=== PATIENT | male | born 1960 | race Caucasian/White ===

== ENCOUNTER 2018-01-29 08:10 | Emergency (ER) | payer BC ==
[2018-01-29] MEDS ORDERED: Ondansetron INJ* 2 MG/ML VIAL IV ONE (08:25)
[2018-01-29] MEDS ORDERED: NS 0.9% 1000 ML* 1,000 ML IV ONE (08:30)
[2018-01-29] MEDS ORDERED: Morphine VIAL* 4 MG/ML VIAL (1 ml vial) IV ONE ×2 (08:30→09:25)
--- NOTE | 2018-01-29 08:46 | ED ---
Abdominal Pain/Male - HPI Summary HPI Summary: Patient is a 57-year-old male presenting to the ED with a complaint of abdominal pain acute onset this morning around 5 AM. Associated nausea and vomiting 3. Normal bowel movement. Denies any abdominal surgical history. He states he had abdominal pain several years ago in the same area and a CT abdomen showed no findings. Today he awoke with a hardened mass just above the umbilicus measuring approximately 6 cm in diameter. The area is exquisitely tender to the touch, but denies any discolorations or temperature changes to the area. Medications include atorvastatin. Denies any other medications. Endorses a mild amount of chest pain immediately following few episodes of vomiting. Endorses some epigastric tenderness. Denies any cardiac history. Denies any shortness of breath. Pain is currently an 8/10. - History of Current Complaint Chief Complaint: EDAbdPain Stated Complaint: ABD PAIN,VOMITING Time Seen by Provider: 01/29/18 08:18 Hx Obtained From: Patient, Family/Assembly Riveter Onset/Duration: Sudden Onset - Worsening over the past month, worse in severity today Timing: Constant Severity Initially: Moderate Severity Currently: Moderate Pain Intensity: 7 Pain Scale Used: 0-10 Numeric Location: Umbilical Radiates: No Character: Dull Aggravating Factor(s): Nothing Alleviating Factor(s): Position - Lying flat Associated Signs And Symptoms: Positive: Nausea, Vomiting. Negative: Diaphoresis, Cough, Constipation, Blood in Stool, Decreased Appetite, Diarrhea, Penile Discharge - Risk Factors Testicular Torsion: Negative Cardiac Risk Factors: Negative - Allergies/Home Medications Allergies/Adverse Reactions: Allergies Allergy/AdvReac Type Severity Reaction Status Date / Time enviromental Allergy Mild itching,watery Uncoded 01/29/18 08:27 eyes and nose PMH/Surg Hx/FS Hx/Imm Hx Previously Healthy: Yes Endocrine/Hematology History: Denies: Hx Diabetes, Hx Thyroid Disease Cardiovascular History: Reports: Hx Hypercholesterolemia - no meds per pt, Hx Hypertension - pt quit meds 2 months ago Respiratory History: Denies: Hx Asthma, Hx Chronic Obstructive Pulmonary Disease (COPD) GI History: Reports: Other GI Disorders - abdominal pain Denies: Hx Ulcer - Immunization History Hx Pertussis Vaccination: No Immunizations Up to Date: Unable to Obtain/Confirm Infectious Disease History: No Infectious Disease History: Denies: Hx Clostridium Difficile, Hx Hepatitis, Hx Human Immunodeficiency Virus (HIV), Hx Shingles, Hx Tuberculosis, History Other Infectious Disease, Traveled Outside the [place] in Last 30 Days - Social History Occupation: Employed Full-time Lives: With Family Alcohol Use: None Hx Substance Use: No Substance Use Type: Reports: None Hx Tobacco Use: No Smoking Status (MU): Never Smoked Tobacco Review of Systems Constitutional: Negative Negative: Fever, Chills, Fatigue, Skin Diaphoresis Negative: Palpitations, Chest Pain Negative: Shortness Of Breath, Cough Positive: Abdominal Pain - umbilical, Vomiting, Nausea. Negative: Diarrhea Genitourinary: Negative Positive: no symptoms reported, see HPI Skin: Negative Neurological: Negative All Other Systems Reviewed And Are Negative: Yes Physical Exam Triage Information Reviewed: Yes Vital Signs On Initial Exam: Initial Vitals Temp Pulse Resp BP Pulse Ox 96.4 F 58 18 143/79 97 01/29/18 08:11 01/29/18 08:11 01/29/18 08:11 01/29/18 08:11 01/29/18 08:11 Vital Signs Reviewed: Yes Appearance: Positive: Well-Appearing, Well-Nourished Skin: Positive: Warm, Skin Color Reflects Adequate Perfusion Head/Face: Positive: Normal Head/Face Inspection Eyes: Positive: EOMI, JULISA, Conjunctiva Clear Neck: Positive: Supple, No Lymphadenopathy Respiratory/Lung Sounds: Positive: Clear to Auscultation, Breath Sounds Present Cardiovascular: Positive: RRR, Pulses are Symmetrical in both Upper and Lower Extremities Abdomen Description: Positive: Hernia @ - umbilical Musculoskeletal: Positive: Strength/ROM Intact Neurological: Positive: Sensory/Motor Intact, Speech Normal Psychiatric: Positive: Normal, Affect/Mood Appropriate AVPU Assessment: Alert Diagnostics - Vital Signs Vital Signs Temp Pulse Resp BP Pulse Ox 01/29/18 08:11 96.4 F 58 18 143/79 97 - Laboratory Result Diagrams: 01/29/18 08:59 01/29/18 08:59 Lab Statement: Any lab studies that have been ordered have been reviewed, and results considered in the medical decision making process. Re-Evaluation - Re-Evaluation First Eval Change: Improved - Improved with pain medication and nausea medication Abdominal Pain Fem Course/Dx - Course Course Of Treatment: Patient is evaluated for a probable umbilical hernia. On physical examination there is a 6 cm in diameter area just above the umbilicus without clear evidence of strangulation. There is no ecchymosis or other discolorations to the area. No temperature changes. The area above the umbilicus is tender and hard to the touch. The mass is not reducible and patient is in an extreme amount of pain on palpation. At this time concerned with a knuckle of bowel strangulation, bowel obstruction or bowel ischemia. Continues to feel nauseous. Patient is given morphine and Zofran in the ED. Fluids given. CT abdomen/pelvis obtained which shows small bowel containing periumbilical hernia without evidence of obstruction or strangulation. Discussed these results with patient and have offered to call surgery d/t amount of pain. However patient is requesting to follow-up as an outpatient and feels improved since arrival with some pain medicine, lying flat and nausea has subsided. Will give pain management and nausea medication. He is given information on stool softeners for constipation associated with opioid medications. He will follow-up and voices understanding of return precautions. is at bedside who agrees with this plan and discharge. - Diagnoses Differential Diagnosis/HQI/PQRI: Bowel Obstruction, Constipation, Ischemic Bowel Provider Diagnoses: Umbilical hernia without obstruction or gangrene Discharge - Sign-Out/Discharge Documenting (check all that apply): Discharge/Admit/Transfer - Discharge Plan Condition: Stable Disposition: HOME Prescriptions: Ondansetron ODT TAB* [Zofran 4 MG Odt TAB*] 4 mg PO Q6H PRN #12 tab.odt MDD 4 PRN Reason: Nausea Oxycodone TAB(NF) [Oxycodone HCl 10 MG] 10 mg PO Q6H PRN #16 tab MDD 4 PRN Reason: Pain Patient Education Materials: Umbilical Hernia (ED) Referrals: Dc Hooks MD [Medical Doctor] - Jl Estevez PA [Primary Care Provider] - Additional Instructions: You were seen for umbilical hernia This is verified as discussed on CAT scan Please follow-up with surgery for further evaluation and possible need for repair In the meantime, you've been given Zofran for nausea and oxycodone for pain If he develop any worsening pain, discoloration or temperature changes around the umbilicus, return to the ED immediately For comfort you may use an abdominal band around the area Any lifting or abdominal pressure will worsen your symptoms - Billing Disposition and Condition Condition: STABLE Disposition: Home
[2018-01-29] MEDS ORDERED: Ondansetron SYRINGE* 4 MG/2 ML SYRINGE (from 40mg/20ml vial) IV ONE (09:00)
[2018-01-29 09:05] LABS: ABS Basophils 0 10^3/ul (0-0.2); ABS Eosinophils 0 10^3/ul (0-0.6); ABS Lymphocytes 1.1 10^3/ul (1.0-4.8); ABS Monocytes 0.5 10^3/ul (0-0.8); ABS Neutrophils 6.2 10^3/ul (1.5-7.7); ABS Nucleated RBC 0 10^3/ul; Eosinophil % 0.4 % (0-6); Hematocrit 48 % (42-52); Hemoglobin 16.4 g/dl (14.0-18.0); Lymphocyte % 13.6 % (25-47); Mean Corpuscular HGB Conc 34 g/dl (31-36); Mean Corpuscular Hemoglobin 30 pg (27-31); Mean Corpuscular Volume 89 fL (80-94); Mean Platelet Volume 11.4 um3 (7.4-10.4); Nucleated Red Blood Cells % 0.2; Platelet Count 125 10^3/ul (150-450); Red Blood Count 5.41 10^6/ul (4.00-5.40); Red Cell Distribution Width 14 % (10.5-15); White Blood Count 7.9 10^3/ul (3.5-10.8)
[2018-01-29 09:15] LABS: INR 0.94 (0.77-1.02)
[2018-01-29] MEDS ORDERED: Iohexol 300* (CONTRAST) 10 ML SDV IV ONE (10:15)
--- NOTE | 2018-01-29 10:46 | RAD ---
INDICATION: Umbilical hernia. Possible obstruction. COMPARISON: CT February 21, 2013 TECHNIQUE: Axial source images were obtained from the hemidiaphragms to the symphysis pubis following administration of oral and intravenous contrast. 149 mL Omnipaque 300 was utilized. Coronal and sagittal reconstructed images were acquired. Lung bases: The lung bases are clear. Liver: The liver is enlarged with findings of hepatic steatosis. There are no masses. There is no ductal dilatation. Gallbladder: There are no calcified gallstones. There is no evidence of wall thickening or pericholecystic fluid. Spleen: The spleen is normal in size. There are no masses. Pancreas: There is no focal pancreatic mass or ductal dilatation. Adrenal glands: There is no evidence of adrenal mass. Kidneys: The kidneys are normal in size and position. There are prompt nephrograms and there is prompt excretion bilaterally. There are tiny bilateral renal parenchymal cysts. There is no evidence of nephrolithiasis. Adenopathy: There is no evidence of adenopathy by size criteria. Fluid collections: There are no free or localized fluid collections. Vessels:There are no significant atherosclerotic changes involving the aorta. There is no focal aneurysm. The iliac vessels are normal in caliber. The IVC appears normal. GI tract: There is a small periumbilical hernia. The hernia measures approximately 5 cm in maximum transverse dimension and the mouth of the hernia is approximately 2 cm. There is small bowel within the hernia without evidence of obstruction or strangulation. This represents a new finding. There are scattered diverticula of the sigmoid and descending colon but there are no CT findings of acute diverticulitis. Pelvic organs: The prostate and seminal vesicles appear normal Bladder: There are no bladder masses. Abdominal and pelvic soft tissues: There is a probable sebaceous cyst in the right flank measuring 2.5 cm and appearing essentially unchanged Osseous structures: There are no acute osseous findings. Other: None IMPRESSION: SMALL BOWEL CONTAINING PERIUMBILICAL HERNIA WITHOUT EVIDENCE OF OBSTRUCTION OR STRANGULATION
[2018-01-29 11:18] VITALS: BP 136/64
== END 2018-01-29 11:20 | disposition home or self-care (01) ==
LOC: ED 08:10
DX: K42.9 Umbilical hernia without obstruction or gangrene (principal)
CPT/HCPCS: 36415; 74177; 80053; 83605; 84484; 85025; 85610; 86140; 96361; 96374; 96375; 96376; 99283; J2270; J2405; Q9967

== ENCOUNTER 2018-03-10 09:24 | Day surgery (SDC) | payer BC ==
--- NOTE | 2018-03-04 16:01 | HP ---
CC: CHER Ortega, in [place], [place] * ADMISSION HISTORY AND PHYSICAL: DATE OF ADMISSION: 03/10/18 ATTENDING SURGEON: Dr. Dc Hooks.* (DICTATED BY CHER COLINDRES) CHIEF COMPLAINT: Umbilical hernia. HISTORY OF PRESENT ILLNESS: This is a 57-year-old morbidly obese male who has had a bulge present just above the umbilicus for the past 2 years or so. It was only uncomfortable if he pushed on it or otherwise manipulated it. However , around 01/29/18, he experienced increased pain associated with a bulge and accompanied by nausea and vomiting. He presented to the ED. CT scan at that time showed a small umbilical/ventral hernia, containing small bowel, but without evidence of obstruction. The patient received analgesic and antiemetics and symptoms resolved to the point where he was discharged. He was then seen in followup by his primary care office and referred here. He was seen by Dr. Hooks on 02/25/18. Exam at that time confirmed the presence of a supraumbilical ventral hernia, which was minimally tender at that time. The patient has not had any recurrent symptoms similar to those from 01/29/18. Dr. Hooks discussed with him the indications for repair and methods thereof. The patient understands the indications, risks, benefits, and alternatives and would like to proceed as scheduled with laparoscopic repair of ventral hernia with mesh. PAST MEDICAL HISTORY: Lumbar and thoracic degenerative disk disease (currently seeing a specialist in [place]), morbid obesity, hyperlipidemia. He reports some symptoms of neuropathy in his left foot. He states that he has been treated in the past for hypertension, but not at the present time. PAST SURGICAL HISTORY: He has not had any previous surgeries. CURRENT MEDICATIONS: Atorvastatin 10 mg once daily. DRUG ALLERGIES: None known. FAMILY HISTORY: Negative for anesthesia problems, bleeding, or clotting disorders. SOCIAL HISTORY: The patient is . 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 He quit smoking approximately 10 years ago with a 30-pack year prior history. He denies use of alcohol or recreational drugs. REVIEW OF SYSTEMS: General: No recent constitutional symptoms or acute illnesses. He has intentionally been trying to lose weight and improved his level of physical activity. HEENT: He does have full upper and lower partial denture. No recent changes in terms of vision. Cardiovascular: No chest pain , palpitations, or history of heart murmur. Respiratory: No history of asthma , chronic cough, or shortness of breath. GI: No symptoms other than those from the event around 01/29/18. He has never had a colonoscopy, but does do testing for occult blood on a regular basis. : No problems reported. Endocrine: No diabetes or thyroid dysfunction (though I do note from his lab work from 01/29/18, a glucose of 180; I did not discuss that with him today). Musculoskeletal: As above. Also some history of right shoulder injury and dysfunction. Neurological: No additions to above. Remainder of review of systems is negative. PHYSICAL EXAMINATION GENERAL: Well-nourished, morbidly obese male, in no acute distress. VITAL SIGNS: Height 72 inches, weight 301 pounds, BMI 40.8. Blood pressure 134 /80, pulse 64, respirations 16. HEENT: Pupils equal and round, reactive. EOMs intact. No conjunctival pallor. Oropharynx: He has full upper and partial lower denture. No intraoral lesions. NECK: No lymphadenopathy, thyromegaly, or masses. LUNGS: Clear to auscultation. No wheezes. HEART: Regular rate and rhythm. No murmur appreciated. ABDOMEN: There is a minimally visible, but palpable soft tissue mass just superior to the umbilicus, which upon deep palpation is mildly tender. I did not make attempt to completely reduce the hernia. The remainder of the abdomen is soft, nontender, and without significant tenderness, masses, or organomegaly , though the exam is somewhat limited by body habitus. GENITALIA: Not examined. RECTAL: Not done. BACK: Some mild to moderate spinous process in the lumbar and lower thoracic regions, which extends to the paraspinous muscles bilaterally. EXTREMITIES: No edema. NEUROLOGICAL: Grossly intact. Specific neurological exam not performed at this time. SKIN: Warm and dry. No suspicious rashes or lesions noted. IMPRESSION: Umbilical/ventral hernia. PLAN: Laparoscopic repair of ventral hernia with mesh. CHER COLINDRES [id number]/[facility] #: [id number] [facility] CENTERNupur
[~2018-03-10 09:24] MED LIST: Buffered Lidocaine 0.9% SYRIN* 5 ML/SYR SYRINGE INTRADERM ONE; Famotidine IV* 10 MG/ML 2 ML (20 mg) IV ONE; Midazolam* 1 MG/ML 5 ML VIAL (5 MG) ONE; fentaNYL* 50 MCG/ML 2 ML VIAL (100 MCG VIAL) ONE
[2018-03-10] MEDS ORDERED: ceFAZolin 2 GM PREMIX (*) 2 GM/50 ML BAG IVPB ONE (09:31)
[2018-03-10] MEDS ORDERED: ceFAZolin 1 GM in Dextrose (*) 1 GM/50 ML BAG IVPB ONE (09:31)
[2018-03-10] MEDS ORDERED: Famotidine IV* 10 MG/ML 2 ML (20 mg) ONE (09:31)
[2018-03-10] MEDS ORDERED: Bupivacaine 0.25% W/EPI* 10 ML SDV ONE (10:39)
[2018-03-10] MEDS ORDERED: fentaNYL* 50 MCG/ML 2 ML VIAL (100 MCG VIAL) ONE ×2 (11:17→11:29)
[2018-03-10] MEDS ORDERED: Propofol* 10 MG/ML 20 ML BTL IV PUSH ONE (11:18)
[2018-03-10] MEDS ORDERED: Ketorolac INJ* 30 MG/ML 1 ML VIAL ONE (11:18)
[2018-03-10] MEDS ORDERED: Dexamethasone IV* 4 MG/ML 1 ML (4 MG) ONE (11:18)
[2018-03-10] MEDS ORDERED: Ondansetron INJ* 2 MG/ML VIAL ONE (11:18)
[2018-03-10] MEDS ORDERED: Succinylcholine* 20 MG/ML 10 ML VIAL ONE (11:18)
[2018-03-10] MEDS ORDERED: Naloxone* 0.4 MG/ML 1 ML VIAL IV PRN (11:40)
[2018-03-10] MEDS ORDERED: DiMENhydriNATE IV* 50 MG/ML VIAL IV PUSH PRN (11:40)
[2018-03-10] MEDS ORDERED: HYDROmorphone INJ* 0.5 MG/0.5 ML SYRINGE ONE ×3 (12:23→13:20)
[2018-03-10] MEDS: HYDROmorphone INJ* 0.5 MG/0.5 ML SYRINGE IV PRN ×3 (12:42→13:21)
--- NOTE | 2018-03-10 12:43 | OP ---
Operative Report - Blank - Operative Report Date of Operation: 03/10/18 Note: Brief Operative Note Preop Dx: Ventral Hernia Postop Dx: same Procedure: Laparoscopic repair ventral hernia w/ mesh Anesthesia: GET Surgeon: Jessee Warehouse Sorter: CHER Mendoza; MS Pietro Fluids: 1300 ml RL EBL: < 50 ml Specimen: none Drains: none Findings: dictated
[2018-03-10] MEDS ORDERED: oxyCODONE/Acetamin 5/325 MG* TAB ONE ×2 (13:38→14:10)
[2018-03-10] MEDS: oxyCODONE/Acetamin 5/325 MG* TAB PO PRN ×2 (13:41→14:11)
[2018-03-10 14:17] VITALS: BP 144/62
--- NOTE | 2018-03-11 13:57 | OP ---
CC: Dr. Dc Hooks; CHER Ortega OPERATIVE REPORT: DATE OF OPERATION: 03/10/18 DATE OF : 56 SURGEON: Dc Hooks MD TALENT DEVELOPMENT MANAGER: CHER Clarke ANESTHESIOLOGIST: Dr. Mena. ANESTHESIA: General anesthetic, local infiltration. PRE-OP DIAGNOSIS: Ventral hernia. POST-OP DIAGNOSIS: Ventral hernia. OPERATIVE PROCEDURE: Laparoscopic repair of ventral hernia. DESCRIPTION OF PROCEDURE: The patient was supine on the operating room table. After adequate general anesthetic, compression stockings, Asim Hugger warmer, and intravenous antibiotics, the abdomen was clipped and prepped with antiseptic, draped in a sterile fashion. Local infiltrative anesthesia was carried out in right upper quadrant. Visiport cannula was inserted without difficulty. Insufflation was carried out with carbon dioxide. Inspection revealed no evidence of underlying injury. Addition al cannulae 12 mm right mid abdomen and 5 mm right lower quadrant and subsequently a 5 mm left mid ab domen was placed. There was approximately 3 mm hernia defect in the supraumbilical region that had a fair amount of omental contents. These were readily reduced and the preperitoneal fat was stripped away to expose the musculature and then a 6-inch round underlay patch was utilized. This was passed into the abdominal cavity, then brought up and centered at the defect and then secured into place usi ng the laparoscopic stapler. Additional sutures of #1 Ethibond were used to secure the edges as well. Everything was in good condition. The cannulae were removed. Pneumoperitoneum allowed to escape an d incision was closed with 5-0 Vicryl followed by Steri-Strips. He tolerated the procedure well, was awakened, and brought to recovery in good condition. No complications. No drains. No pathologic sp ecimens. Sponge and instrument counts correct. Estimated blood loss 10 mL. [id number]/[facility] #: [id number]
== END 2018-03-10 14:52 | disposition home or self-care (01) ==
LOC: OR 09:24
PROVIDERS: ATTEND Surgery
DX: K43.9 Ventral hernia without obstruction or gangrene (principal); E66.01 Morbid (severe) obesity due to excess calories; E78.5 Hyperlipidemia, unspecified; Z87.891 Personal history of nicotine dependence
CPT/HCPCS: A9270-GY; C1781; J0330; J0690; J1100; J1170; J1885; J2250; J2405; J2704; J3010